=== PATIENT | female | born 1955 | race Caucasian/White ===

== ENCOUNTER 2018-03-19 07:51 | Emergency (ER) | payer OTHER ==
[2018-03-19 07:56] VITALS: BP 163/94
--- NOTE | 2018-03-19 08:02 | EDPHY ---
H & P Stated Complaint: L FOOT PAIN Time Seen by Provider: 03/19/18 08:01 - Personal History Current Tetanus/Diphtheria Vaccine: Yes - Medical/Surgical History Hx Asthma: No Hx Chronic Respiratory Disease: No Hx Diabetes: No Hx Cardiac Disease: No Hx Renal Disease: No Hx Cirrhosis: No Hx Alcoholism: No Hx HIV/AIDS: No Hx Splenectomy or Spleen Trauma: No Other PMH: SEIZURES, ASTHMA, HTN, HYPERLIPIDEMIA - Social History Smoking Status: Never smoked Constitutional: Initial Vital Signs Temperature (C) 36.6 C 03/19/18 07:54 Heart Rate 90 03/19/18 07:54 Respiratory Rate 16 03/19/18 07:54 Blood Pressure 163/94 H 03/19/18 07:54 O2 Sat (%) 96 03/19/18 07:54 O2 Delivery Mode Room Air Allergies/Adverse Reactions: divalproex sodium [From Depakote] Allergy (Verified 03/19/18 07:54) phenytoin [From Dilantin] Allergy (Verified 03/19/18 08:00) Home Medications: Medication Instructions Recorded Advair 250/50 (*) 03/19/18 Crestor 03/19/18 Losartan Potassium 03/19/18 Singulair 03/19/18 Zyrtec 03/19/18 Medical Decision Making ED Course/Re-evaluation: CHIEF COMPLAINT: Left foot injury HISTORY OF PRESENT ILLNESS: The patient is a 62 y/o female with a history of a left ankle fracture 6 years ago complaining of a left foot injury last night. Last night, she got up to go to the bathroom and while squatting to sit on the toilet, she lost her balance and fell, twisting her left ankle. She heard a snap and felt a pop. Since then, she has had pain at the base of the 5th metatarsal with walking or pressure. She denies any other injuries or associated symptoms. REVIEW OF SYSTEMS: A 10 point review of systems was performed and is negative with the exception of the elements mentioned in the history of present illness. PHYSICAL EXAM: HR, BP, O2 Sat, RR. Temp noted General Appearance: Alert, well hydrated, appropriate, and non-toxic appearing. Head: Atraumatic without obvious injury Eyes: Pupils equal, round, reactive to light and accommodation, EOMI, no trauma , no injection. Nose: Atraumatic, no rhinorrhea, clear. Neck: Supple, 2+ carotid upstroke, nontender, no lymphadenopathy. Musculoskeletal: Tenderness at the base of the 5th metatarsal. Normal active ROM of all extremities, pain in left foot with weightbearing and palpation. Neurological: Alert, appropriate, and interactive. Skin: No rashes, good turgor, no nodules on palpation. Past medical history: Left ankle fracture 6 years ago, seizures, asthma, hypertension, hyperlipidemia Past surgical history: Surgical repair of ankle fracture Family history: Non-contributory Social history: From [facility], here visiting daughter, employed by [employer] Medical DIAGNOSTICS/PROCEDURES/CRITICAL CARE TIME: Study: Left foot x-ray Indication: Trauma, left foot pain Results: After viewing the images myself on the PACS system. My interpretation of the images is: Mid-shaft fracture fo the 5th metatarsal. The radiologist interpretation is pending at the time of this dictation. DIFFERENTIAL DIAGNOSIS: The differential diagnosis for the patient's foot injury included but was not limited to Ybarra fracture, other fracture, ligamentous injury, contusion, and muscular strain. MEDICAL DECISION MAKING: The patient presents with pain at the base of the 5th metatarsal after twisting her ankle last night. She denies any other associated injuries or symptoms. Plan for x-ray to evaluate for fracture. 8:25 AM - The x-ray indicates a midshaft fracture fo the 5th metatarsal. She will be placed in a post-op shoe or [place] boot to help stabilize and provide better comfort. I will provide her with a local ortho physician but most of the follow-up will likely take place in [place], where the patient resides. Discharge and follow up instructions. Return precautions explained. The patient agrees to this course of action. Departure - Departure Disposition: Home, Routine, Self-Care Clinical Impression: Fracture of 5th metatarsal Qualifiers: Encounter type: initial encounter Fracture type: closed Fracture alignment: nondisplaced Laterality: left Qualified Code(s): S92.355A - Nondisplaced fracture of fifth metatarsal bone, left foot, initial encounter for closed fracture Condition: Good Instructions: Foot Fracture in Adults (ED) Additional Instructions: 1. Please wear the provided shoe as directed to stabilize and support your foot. 2. Follow up with an orthopedic physician on your return to [place] 3. Return to the emergency department for uncontrollable pain, severe swelling, or other worsening of condition. Referrals: NONE *PRIMARY CARE P,. [Primary Care Provider] - As per Instructions Ney Galo MD [Medical Doctor] - As per Instructions Report Scribed for: Richard Velazquez Report Scribed by: Nelly Garay Date of Report: 03/19/18 Time of Report: 08:17
== END 2018-03-19 08:55 | disposition home or self-care (01) ==
DX: S92.355A Nondisplaced fracture of fifth metatarsal bone, left foot, initial encounter for closed fracture (principal); X50.1XXA Overexertion from prolonged static or awkward postures, initial encounter; Y92.012 Bathroom of single-family (private) house as the place of occurrence of the external cause; Y93.9 Activity, unspecified; Y99.9 Unspecified external cause status
CPT/HCPCS: L4386